=== PATIENT | female | born 1990 | race Two or more races ===

== ENCOUNTER 2021-04-13 07:00 | Inpatient (IN) | payer OTHER ==
[2021-04-13 08:22] VITALS: BMI 28.3
[2021-04-13 09:31] LABS: POC NITRAZINE POS
[2021-04-13 09:42] LABS: BASO % 0.4 % (0-2.0); EOS % 1.5 % (0-4.5); HEMATOCRIT 36.4 % (32.4-45.2); HEMOGLOBIN 11.8 GM/dL (10.7-15.3); LYMPH % 23.2 % (8-40); MCH 26.4 pg (25.7-33.7); MCHC 32.5 g/dl (32.0-36.0); MEAN CELL VOLUME 81.1 fl (80-96); MEAN PLT VOLUME 8.6 fl (7.5-11.1); MONO % 4.8 % (3.8-10.2); NEUT % 70.1 % (42.8-82.8); PLATELET COUNT 197 K/MM3 (134-434); RBC 4.49 M/mm3 (3.60-5.2); WHITE BLOOD COUNT 8.8 K/mm3 (4.0-10.0)
[2021-04-13 09:52] LABS: INR 1.07 (0.83-1.09); PROTHROMBIN TIME (PATIENT) 12.9 SEC (9.7-13.0)
[2021-04-13 09:55] LABS: ACTIVATED PTT 26.3 SECONDS (25.2-36.5)
[2021-04-13 10:00] LABS: CALCIUM 8.9 mg/dL (8.5-10.1)
[2021-04-13 10:01] LABS: BLOOD UREA NITROGEN 10.7 mg/dL (7-18)
[2021-04-13 10:05] LABS: CREATININE 0.8 mg/dL (0.55-1.3)
[2021-04-13] MEDS ORDERED: DEXTROSE 5%-LACTATED RINGERS 1,000 ML IV SCH (10:30)
[2021-04-13] MEDS ORDERED: OXYTOCIN 30 UNITS in 0.9% NS 30 UNIT/500 ML INFUS.BAG IVPB ONE (10:39)
[2021-04-13] MEDS ORDERED: CLINDAMYCIN 900 MG PREMIX IVPB 900 MG/50 ML BAG IVPB ONE ×2 (10:39→18:18)
[2021-04-13] MEDS ORDERED: CLINDAMYCIN 900 MG PREMIX IVPB 900 MG/50 ML BAG IVPB SCH (10:45)
[2021-04-13] MEDS ORDERED: OXYTOCIN 30 UNITS in 0.9% NS 30 UNIT/500 ML INFUS.BAG IVPB SCH (10:45)
[2021-04-13] MEDS: CLINDAMYCIN 900 MG PREMIX IVPB 900 MG/50 ML BAG IVPB SCH ×2 (10:49→18:30)
[2021-04-13 12:34] LABS: SYPHILIS W/ RPR CONF NON-REACTIVE (NONREACTIVE)
[2021-04-13 13:03] LABS: HIV INTERPRETATION NEGATIVE (NEGATIVE)
[2021-04-13] MEDS ORDERED: PROMETHAZINE HCL 25 MG/1 ML VIAL ONE (13:36)
[2021-04-13] MEDS ORDERED: BUTORPHANOL TARTRATE 2 MG/ML VIAL ONE (13:36)
[2021-04-13] MEDS ORDERED: BUTORPHANOL TARTRATE 2 MG/ML VIAL IVPB ONE (14:15)
[2021-04-13] MEDS ORDERED: PROMETHAZINE HCL 25 MG/1 ML VIAL IVPB ONE (14:15)
[2021-04-13] MEDS ORDERED: FENTANYL/BUPIVACAINE/NS/PF - PCEA - 50 ML DISP.SYRIN EP ONE ×2 (16:05→20:23)
[2021-04-13] MEDS ORDERED: NALOXONE HCL 0.4 MG/ML VIAL IVPUSH PRN (17:17)
[2021-04-13] MEDS ORDERED: FENTANYL/BUPIVACAINE/NS/PF - PCEA - 50 ML DISP.SYRIN EP SCH (17:30)
[2021-04-13] MEDS ORDERED: OXYTOCIN 20 UNITS in 0.9% NS 20 UNIT/1,000 ML INFUS.BAG IV ONE (20:18)
[2021-04-13] MEDS ORDERED: LIDOCAINE HCL 1% PRESERVATIVE FREE - 30ML VIAL ONE (20:18)
[2021-04-13] MEDS ORDERED: BENZOCAINE 20% 57 GM BOTTLE TP PRN (22:51)
[2021-04-13] MEDS ORDERED: METHYLERGONOVINE MALEATE 0.2 MG/1 ML AMP IM PRN (22:51)
[2021-04-13] MEDS ORDERED: BISACODYL 10 MG SUPP.RECT RC PRN (22:51)
[2021-04-13] MEDS ORDERED: BENZOCAINE 28 GM HEMORRHOIDAL OINTMENT TP PRN (22:51)
[2021-04-13] MEDS ORDERED: WITCH HAZEL 50% (TUCKS) 40 PAD/JAR PAD TP PRN (22:51)
[2021-04-13] MEDS ORDERED: OXYTOCIN 20 UNITS in 0.9% NS 20 UNIT/1,000 ML INFUS.BAG IV SCH (23:00)
[2021-04-14] MEDS ORDERED: PCA PUMP NR ONE (01:19)
[2021-04-14 09:43] LABS: BASO % 0.2 % (0-2.0); EOS % 0.4 % (0-4.5); HEMATOCRIT 31.9 % (32.4-45.2); HEMOGLOBIN 10.3 GM/dL (10.7-15.3); LYMPH % 14.4 % (8-40); MCH 26.2 pg (25.7-33.7); MCHC 32.1 g/dl (32.0-36.0); MEAN CELL VOLUME 81.5 fl (80-96); MEAN PLT VOLUME 8.9 fl (7.5-11.1); MONO % 4.8 % (3.8-10.2); NEUT % 80.2 % (42.8-82.8); PLATELET COUNT 157 K/MM3 (134-434); RBC 3.92 M/mm3 (3.60-5.2); RDW 14.9 % (11.6-15.6); WHITE BLOOD COUNT 12.6 K/mm3 (4.0-10.0)
[2021-04-14] MEDS ORDERED: DIPHTH,PERTUSS(ACELL),TET 0.5 ML DISP.SYRIN IM ONE (10:00)
[2021-04-14] MEDS: IBUPROFEN 600 MG TABLET (FP) PO PRN (10:35)
[2021-04-14] MEDS: PRENATAL VITAMINS W/ FOLIC ACID TABLET (FP) PO SCH (10:35)
[2021-04-14] MEDS: ACETAMINOPHEN 325 MG TABLET (FP) PO PRN ×2 (10:36→23:36)
[2021-04-14] MEDS: oxyCODONE HCL 5 MG TABLET PO PRN ×2 (13:57→23:35)
[2021-04-14] MEDS ORDERED: SENNOSIDES/DOCUSATE COMBO (SENNA PLUS) TABLET (UD) PO PRN (22:00)
[2021-04-15] MEDS: PRENATAL VITAMINS W/ FOLIC ACID TABLET (FP) PO SCH (09:23)
[2021-04-15] MEDS: IBUPROFEN 600 MG TABLET (FP) PO PRN (09:23)
[2021-04-15] MEDS: ACETAMINOPHEN 325 MG TABLET (FP) PO PRN (09:24)
[2021-04-15 10:11] VITALS: BP 112/74; PULSE 84; TEMP 98.1
== END 2021-04-15 13:50 | disposition home or self-care (01) | DRG 807 ==
LOC: JLDR 07:00 → J3W 04-14 02:06
PROVIDERS: ADMIT Obstetrics & Gynecology; ATTEND Obstetrics & Gynecology
PROC: 10D07Z6 Extraction of Products of Conception, Vacuum, Via Natural or Artificial Opening (ICD-10-PCS; principal; 2021-04-13)
PROC: 0W8NXZZ Division of Female Perineum, External Approach (ICD-10-PCS; 2021-04-13)
DX: O42.013 Preterm premature rupture of membranes, onset of labor within 24 hours of rupture, third trimester (principal); Z37.0 Single live birth; O32.4XX0 Maternal care for high head at term, not applicable or unspecified; O75.81 Maternal exhaustion complicating labor and delivery; Z3A.36 36 weeks gestation of pregnancy
CPT/HCPCS: 36415; 59409; 80048; 82962; 83986-QW; 85025; 85610; 85730; 86762; 86769; 86780; 86850; 86900; 86901; 87389; 90715; C9803; U0003; U0005

== ENCOUNTER 2024-10-14 03:00 | Inpatient (IN) | payer OTHER ==
[2024-10-14 04:13] VITALS: BMI 28.6
[2024-10-14] MEDS ORDERED: CLINDAMYCIN 900 MG PREMIX IVPB 900 MG/50 ML BAG IVPB ONE (04:14)
[2024-10-14] MEDS: LACTATED RINGERS SOLUTION 1,000 ML IV SCH (04:17)
[2024-10-14] MEDS: CLINDAMYCIN 900 MG PREMIX IVPB 900 MG/50 ML BAG IVPB SCH (04:18)
[2024-10-14 04:53] LABS: BASO % 0.2 % (0-2.0); EOS % 3.7 % (0-4.5); HEMATOCRIT 37.7 % (32.4-45.2); HEMOGLOBIN 12.5 GM/dL (10.7-15.3); LYMPH % 22.5 % (8-40); MCH 26.4 pg (25.7-33.7); MEAN CELL VOLUME 79.8 fl (80-96); MEAN PLT VOLUME 8.1 fl (7.5-11.1); MONO % 4.1 % (3.8-10.2); NEUT % 69.5 % (42.8-82.8); PLATELET COUNT 224 10^3/uL (134-434); RBC 4.73 M/mm3 (3.60-5.2); RDW 15.2 % (11.6-15.6); WHITE BLOOD COUNT 11.9 K/mm3 (4.0-10.0)
[2024-10-14 05:11] LABS: POTASSIUM 4.7 mmol/L (3.5-5.1)
[2024-10-14 05:12] LABS: CALCIUM 9.3 mg/dL (8.5-10.1); INR 1.05 (0.83-1.09); PROTHROMBIN TIME (PATIENT) 12.1 SEC (9.7-13.0)
[2024-10-14 05:13] LABS: BLOOD UREA NITROGEN 9.3 mg/dL (7-18)
[2024-10-14 05:14] LABS: ACTIVATED PTT 28.2 SECONDS (25.2-36.5)
[2024-10-14 05:16] LABS: CREATININE 0.9 mg/dL (0.55-1.3)
[2024-10-14] MEDS ORDERED: FENTANYL/BUPIVACAINE/NS/PF - PCEA - 50 ML DISP.SYRIN EP ONE (05:17)
[2024-10-14] MEDS: FENTANYL/BUPIVACAINE/NS/PF - PCEA - 50 ML DISP.SYRIN EP SCH ×2 (05:53→15:08)
[2024-10-14] MEDS ORDERED: NALOXONE HCL 0.4 MG/ML VIAL IVPUSH PRN (06:16)
[2024-10-14] MEDS ORDERED: OXYTOCIN 30 UNITS in 0.9% NS 30 UNIT/500 ML INFUS.BAG IVPB ONE (06:25)
[2024-10-14] MEDS: OXYTOCIN 30 UNITS in 0.9% NS 30 UNIT/500 ML INFUS.BAG IVPB SCH (06:30)
[2024-10-14 06:34] LABS: HIV INTERPRETATION NEGATIVE (NEGATIVE)
[2024-10-14] MEDS ORDERED: OXYTOCIN 20 UNITS in 0.9% NS 20 UNIT/1,000 ML INFUS.BAG IV ONE (07:23)
[2024-10-14] MEDS: OXYTOCIN 20 UNITS in 0.9% NS 20 UNIT/1,000 ML INFUS.BAG IV SCH (08:15)
[2024-10-14] MEDS ORDERED: BISACODYL 10 MG SUPP.RECT RC PRN (08:27)
[2024-10-14] MEDS ORDERED: WITCH HAZEL 50% (TUCKS) 40 PAD/JAR PAD TP PRN (08:27)
[2024-10-14] MEDS ORDERED: METHYLERGONOVINE MALEATE 0.2 MG/1 ML AMP IM PRN (08:27)
[2024-10-14] MEDS ORDERED: FERROUS SO4 325 MG TABLET (FP) ONE (09:57)
[2024-10-14] MEDS ORDERED: PRENATAL VITAMINS W/ FOLIC ACID TABLET (FP) PO ONE (09:58)
[2024-10-14] MEDS ORDERED: IBUPROFEN 600 MG TABLET (FP) PO ONE (09:58)
[2024-10-14] MEDS: FERROUS SO4 325 MG TABLET (FP) PO SCH (10:00)
[2024-10-14] MEDS: IBUPROFEN 600 MG TABLET (FP) PO PRN (10:00)
[2024-10-14] MEDS: PRENATAL VITAMINS W/ FOLIC ACID TABLET (FP) PO SCH (10:00)
[2024-10-14] MEDS: BENZOCAINE 20% 57 GM BOTTLE TP PRN (13:28)
[2024-10-14] MEDS: BENZOCAINE 28 GM HEMORRHOIDAL OINTMENT TP PRN (13:28)
[2024-10-14] MEDS: ACETAMINOPHEN 325 MG TABLET (FP) PO PRN (18:35)
[2024-10-15 08:25] LABS: BASO % 0.3 % (0-2.0); EOS % 3.8 % (0-4.5); HEMATOCRIT 36.5 % (32.4-45.2); HEMOGLOBIN 11.5 GM/dL (10.7-15.3); LYMPH % 28.2 % (8-40); MCH 25.6 pg (25.7-33.7); MCHC 31.5 g/dl (32.0-36.0); MEAN CELL VOLUME 81.2 fl (80-96); MEAN PLT VOLUME 7.8 fl (7.5-11.1); MONO % 4.1 % (3.8-10.2); NEUT % 63.6 % (42.8-82.8); PLATELET COUNT 193 10^3/uL (134-434); RDW 15.2 % (11.6-15.6); WHITE BLOOD COUNT 12.2 K/mm3 (4.0-10.0)
[2024-10-15 10:35] LABS: POC NITRAZINE POS
[2024-10-15] MEDS: DIPHTH,PERTUSS(ACELL),TET 0.5 ML DISP.SYRIN IM ONE (10:35)
[2024-10-15] MEDS: ACETAMINOPHEN 1000 MG/100 ML BAG IVPB ONE (11:13)
[2024-10-15] MEDS: oxyCODONE HCL 5 MG TABLET PO PRN (11:16)
[2024-10-15] MEDS: ACETAMINOPHEN/CAFFEINE/BUTALBITAL 1 TAB PO PRN (18:21)
[2024-10-15] MEDS: SENNOSIDES/DOCUSATE COMBO (SENNA PLUS) TABLET (UD) PO PRN (22:56)
[2024-10-16 08:49] VITALS: RESP 17; TEMP 98.3
[2024-10-16 11:51] VITALS: BP 113/70; PULSE 65
== END 2024-10-16 17:50 | disposition home or self-care (01) | DRG 807 ==
LOC: JLDR 03:00 → J3W 10:40
PROVIDERS: ADMIT Obstetrics & Gynecology; ATTEND Obstetrics & Gynecology
PROC: 10E0XZZ Delivery of Products of Conception, External Approach (ICD-10-PCS; principal; 2024-10-14)
PROC: 0HQ9XZZ Repair Perineum Skin, External Approach (ICD-10-PCS; 2024-10-14)
PROC: 0W8NXZZ Division of Female Perineum, External Approach (ICD-10-PCS; 2024-10-14)
DX: O60.14X0 Preterm labor third trimester with preterm delivery third trimester, not applicable or unspecified (principal); Z37.0 Single live birth; O70.0 First degree perineal laceration during delivery; Z3A.35 35 weeks gestation of pregnancy
CPT/HCPCS: 36415; 59409; 80048; 83986-QW; 85025; 85610; 85730; 86780; 86850; 86900; 86901; 87389; 90715; J0131

== ENCOUNTER 2025-01-10 05:24 | Day surgery (SDC) | payer OTHER ==
[2025-01-09 09:44] VITALS: BMI 26.2
[2025-01-10] MEDS ORDERED: PROPOFOL 20 ML ONE ×2 (12:52→14:34)
[2025-01-10] MEDS ORDERED: MIDAZOLAM HCL 2 MG/2 ML SINGLE DOSE VIAL ONE (12:52)
[2025-01-10] MEDS ORDERED: ROCURONIUM BROMIDE 50 MG/5 ML SYRINGE ONE (12:52)
[2025-01-10] MEDS ORDERED: LIDOCAINE HCL 1%, 10 MG/ML (20ML VIAL) ONE (13:19)
[2025-01-10] MEDS ORDERED: CEFAZOLIN 2 GM in DEXTROSE 5%-WATER - 100 ML IVPB ONE (13:19)
[2025-01-10] MEDS ORDERED: BUPIVACAINE HCL/PF 0.25% (2.5MG/ML) 10 ML VIAL ONE (13:20)
[2025-01-10] MEDS: ceFAZolin SODIUM 1 GM VIAL IVPB ONE (13:40)
[2025-01-10] MEDS ORDERED: SUGAMMADEX SODIUM 200 MG/2 ML VIAL ONE (14:31)
[2025-01-10] MEDS ORDERED: ONDANSETRON 4 MG/2 ML VIAL ONE (14:59)
[2025-01-10] MEDS ORDERED: DEXAMETHASONE SOD PHOSPHATE 4 MG/1 ML VIAL ONE (14:59)
[2025-01-10] MEDS: DEXAMETHASONE SOD PHOSPHATE 20 MG/5 ML VIAL IVPB ONE (15:05)
[2025-01-10] MEDS: ONDANSETRON 4 MG/2 ML VIAL IVPUSH PRN (15:07)
[2025-01-10] MEDS ORDERED: ACETAMINOPHEN 325 MG TABLET (FP) PO PRN (15:08)
[2025-01-10] MEDS ORDERED: IBUPROFEN 600 MG TABLET (FP) PO PRN (15:08)
[2025-01-10] MEDS ORDERED: LACTATED RINGERS SOLUTION 1,000 ML IV SCH (15:15)
[2025-01-10] MEDS ORDERED: ACETAMINOPHEN INJECTION 100 ML ONE (15:24)
[2025-01-10] MEDS: ACETAMINOPHEN 1000 MG/100 ML BAG IVPB ONE (15:27)
[2025-01-10 17:33] VITALS: RESP 18; TEMP 96.6
[2025-01-10] MEDS ORDERED: oxyCODONE HCL 5 MG TABLET ONE (17:38)
[2025-01-10] MEDS: oxyCODONE HCL 5 MG TABLET PO PRN (17:44)
[2025-01-10 17:47] VITALS: BP 112/69; PULSE 71
[2025-01-11] MEDS ORDERED: oxyCODONE HCL 5 MG TABLET PO PRN (03:08)
== END 2025-01-10 18:30 | disposition home or self-care (01) ==
LOC: JASU-SURG 05:24
PROVIDERS: ATTEND Obstetrics & Gynecology
PROC: 0UB04ZZ Excision of Right Ovary, Percutaneous Endoscopic Approach (ICD-10-PCS; principal; 2025-01-10 13:30)
DX: D27.0 Benign neoplasm of right ovary (principal)
CPT/HCPCS: 81025; 88307-TC; 94760; J0131